=== PATIENT | male | born 1940 | race Caucasian/White ===

== ENCOUNTER 2023-04-17 08:29 | Day surgery (SDC) | payer MEDICARE, OTHER, SELFPAY ==
[2023-04-05 09:36] VITALS: BMI 28.7
[2023-04-17] VITALS (12 sets, daily range): BP systolic 124–185; BP diastolic 49–83; PULSE 67–90; RESP 11–16; TEMP 35.9–37.2; O2SAT 92–98; BMI 27.8
--- NOTE | 2023-04-17 06:40 | DI.RAD.S_ITS ---
PROCEDURE: XR KNEE RT 1TO2V INDICATIONS: TKA TECHNIQUE: 2 view(s) of the knee acquired. COMPARISON: None. FINDINGS: Bones: Patient is status post knee joint arthroplasty. Hardware components are in expected positions. Visualized bony structures are intact. Soft tissues: Overlying postoperative changes are noted. IMPRESSION: Expected post-operative appearance of a knee arthroplasty. Dictated by: Terra Avila M.D. on 04/17/2023 at 13:45 Approved by: Terra Avila M.D. on 04/17/2023 at 13:45
[2023-04-17] MEDS: VANCOMYCIN 1,000 MG/200 ML PIGGYBACK 200 MG IV (09:34)
[2023-04-17] MEDS: ACETAMINOPHEN 325 MG TABLET 975 MG PO (09:35)
[2023-04-17] MEDS: LACTATED RINGERS 1,000 ML 42 ML IV (09:35)
[2023-04-17] MEDS: CELECOXIB 200 MG CAPSULE PO (09:35)
--- NOTE | 2023-04-17 10:10 | PM.PREOP ---
Pre-operative Note Interval Note History & Physical reviewed/Exam performed by Physician: Yes Changes to H&P: No
--- NOTE | 2023-04-17 10:11 | PM.PREOP ---
Pre-operative Note Interval Note History & Physical reviewed/Exam performed by Physician: Yes Changes to H&P: No
--- NOTE | 2023-04-17 10:11 | PM.OP.1 ---
Operative Date/Time/Diagnoses Date of procedure: 04/17/23 Time of procedure: 10:45 Pre-op diagnosis: right knee OA Post-op diagnosis: same Procedure & Clinicians Procedure: Right total knee arthroplasty with robotic assisted navigation Same procedure as scheduled: Yes Indications: The patient has had progressively worsening right knee pain with radiographic changes consistent with arthritis. Non-operative management has failed and the patient has requested total knee replacement. The risks, benefits and alternatives to surgery were discussed with the patient prior to proceeding. Risks discussed included, but were not limited to, failure to relieve pain, stiffness, infection, nerve damage, deep venous thrombosis, pulmonary embolism, stroke, coma, heart attack, permanent paralysis and , as well as the potential need for eventual revision of the prosthetic. Surgeon: Nancy Garcia Calculus Professor: Justin Gibson Anesthesia Type: General Operative Notes Findings: Severe right knee OA, adequate bone, good stability Closure Type: primary Specimen(s): none sent Prosthetic devices, grafts, tissues, transplants, or devices: Garcia and nephew BCS 2 size 7 femur, size 5 tibia, 9 mm polyethylene, 35 x 9 mm patella Estimated Blood Loss (mL): 250 Blood products transfused: none Tourniquet time (min): 87 Procedure in detail: The patient was seen in the pre-operative area, where the patient identified the right knee as the operative site and this was marked with my initials. The patient received pre-operative antibiotics, and was taken to the operating room and placed on the operative table in the supine position. After satisfactory anesthesia, a feed and farm management adviser out was performed. The right leg was encircled with a tourniquet about the proximal thigh, and the leg was prepared from the toes to the tourniquet with ChloroPrep in the usual fashion and draped through sterile drapes. The leg was elevated and exsanguinated with Eschmark bandage and the tourniquet inflated to [250] mmHg pressure. A PA was used during the procedure and was essential for intraoperative retraction and safe implantation of the components. The knee was approached through an approximately 18 cm incision centered over the patella and carried into the knee through a medial parapatellar arthrotomy. Portion of the medial and lateral meniscus was resected. Soft tissue was carefully mobilized around the patella the patella was measured with a caliper. Bone was resected from the patella and the patellar height was reconstituted with up an appropriate sized patellar component. A cover was then placed on the patella. A small amount of additional medial and lateral meniscus was resected. Osteophytes were carefully resected. Two Cori pins were placed in the femur and tibia for robotic assisted navigation with the adjustable guide being pinned to the tibia for planned tibial resection. The femur and the tibia were carefully navigated. The PCL was released. Any overlying osteophytes were removed. Patient was then placed thru a range of motion and measurements were taken for stressed and non stressed range of motion of the knee with the plan for robotic assisted system resection of the distal femur and proximal tibia. A plan was taken and improved. A bur was used to resect the distal femoral cut and the femur was further prepared. It was punched and then a 5 in 1 cutting block was applied. The rotation was checked as well as it was checked to make sure there was no evidence of notching. There was good resection of the bone with residual bone spurs being removed with a rongeur. The tibia was carefully adjusted and aligned. Tibial resection appeared appropriate and it was carefully checked with navigation. The femoral component was placed and the notch was finished. A trial reduction was performed. The knee demonstrated full range of motion with good anabaptism of medial and lateral stability with its selected polyethylene insert. Navigation showed there was about 1 mm of laxity throughout the range of motion. There was excellent tracking of the patella and the components. Trial components were removed. The posterior capsule was injected with part of a mixture of 60 ml 0.25% Marcaine mixed with 266 mg Exparel for post operative pain control. The remainder of this mixture was injected into the capsule and subcutaneous tissues during cement curing. The tibia was prepared and punched. The rotation was assessed. After femoral and tibial resection, The patient was placed in extension residual medial and lateral meniscus as well as any residual bone was carefully resected. Hemostasis was achieved especially posteriorly. Additional local was injected into the posterior capsule. Range of motion was [0-130], with good stability throughout the range. The trials were then removed, and the tibia was finished. The bone was prepared with pulsatile lavage, and dried with a sponge. Cement was applied and the final prosthetics placed. Excess cement was removed during and after cement curing. A brief Betadine soak was performed. After confirming there was no extruded cement posteriorly, the final tibial insert was placed. The knee was copiously irrigated and the tourniquet deflated. Hemostasis was obtained with the Bovie cautery. The capsule was closed with interrupted Vicryl. The subcutaneous layer was closed with barbed sutures, and the skin with a running 3-0 V-Lock suture and Surgical glue. An Aquacel Ag dressing was applied and the patient was taken to recovery having tolerated the procedure well. Complications: none Post-operative Condition: stable Disposition: Acute Care Plan for aftercare: The patient will be maintained on a standard total knee replacement protocol with weight bearing as tolerated. The patient will receive aspirin and sequential compression devices for DVT prophylaxis. The patient will be discharged home when safe for the home environment.
--- NOTE | 2023-04-17 10:19 | SUR.OPER ---
Supine on padded OR bed. Pillow under head, arms secured on padded armboards <90 degree abduction. Safety belt across torso. Non-operative leg secured with tape over blanket over lower leg. Operative leg secured in Glenn positioner. Foam padded brace at thigh of operative leg.
[2023-04-17] MEDS: CLINDAMYCIN 900 MG/50 ML PIGGYBACK 50 MG IV ×2 (10:30→18:11)
[2023-04-17] MEDS: BUPIVACAINE LIPOSOME 266 MG/20 ML VIAL INJ (10:59)
[2023-04-17] MEDS: BUPIVACAINE 0.25% (PF) 60 ML, EPINEPHrine 0.3 MG INJ (11:00)
[2023-04-17] MEDS: TRANEXAMIC ACID 1,000 MG VIAL 1000 MG INJ ×2 (11:07→12:19)
[2023-04-17] MEDS: LACTATED RINGERS 1,000 ML 120 ML IV (12:18)
[2023-04-17] MEDS: ONDANSETRON 4 MG/2 ML INJ IV (12:57)
[2023-04-17] MEDS: OXYCODONE IR 5 MG TABLET PO (12:57)
[2023-04-17] MEDS: ACETAMINOPHEN 325 MG TABLET 650 MG PO ×2 (13:26→20:29)
[2023-04-17] MEDS: LACTATED RINGERS 1,000 ML 100 ML IV (13:27)
[2023-04-17] MEDS: IBUPROFEN 400 MG TABLET PO ×3 (13:27→20:28)
--- NOTE | 2023-04-17 16:20 | PT.IIE ---
Current Diagnoses Unilateral primary osteoarthritis, right knee (04/17/23) Surgery Performed Operation Date: 04/17/23 10:45 Actual Procedures p Total Knee Arthroplasty - Robot(Right) - Nancy Garcia MD Surgical History (Last Updated 04/05/23 @ 10:25 by Jessie Vaughan, RN) History of back surgery History of lumbar fusion Hx of appendectomy Hx of bilateral cataract extraction Hx of right mastectomy (2004) Medical History (Last Updated 04/05/23 @ 10:20 by Jessie Vaughan RN) Cancer of right male breast (2004) Diabetes Diarrhea History of COVID-19 (12/2022) HLD (hyperlipidemia) HTN (hypertension) Physical Therapy Inpatient Evaluation/Re-Eval M1 PT/OT-IP Prior Functional Status Start: 04/17/23 17:25 Freq: NEEDED Status: Active Protocol: Document 04/17/23 16:20 AB (Rec: 04/17/23 17:49 AB [id number]) Medical Review Prior Functional Status Medical History Reviewed Yes Communication able to make needs known Mobility and Gait pt was modified independent with all mobilities using a walking stick for ambulation Social History Household Members spouse Living Arrangements House Number of Floors (Floors) Two Floors Number of Stairs To Enter/Railing? 3 steps to enter with L rail 9 steps + landing + 8 steps with wide rails to get to bedroom level where pt will be staying ( pt stated that if he is unable to do stairs, they will ask EMS/fire department to assist them to get into the bedroom) Home Environment Standard Height Toilet,Walk in Shower Home Equipment Front Wheel Walker,Raised Toilet Seat w/Armrests,Shower Seat with Backrest,Hand Held Shower Additional Social History Comment pt has a walking stick M2 PT-IP Current Condition Start: 04/17/23 17:25 Freq: NEEDED Status: Active Protocol: Document 04/17/23 16:20 AB (Rec: 04/17/23 17:49 AB [id number]) Physical Therapy Current Condition Current Condition Evaluation Date 04/17/23 Treatment Diagnosis s/p R TKA; difficulty in walking Onset Date 05/07/23 M3 PT-IP Subjective Start: 04/17/23 17:25 Freq: NEEDED Status: Active Protocol: Document 04/17/23 16:20 AB (Rec: 04/17/23 17:49 AB [id number]) Subjective Physical Therapy Visit Type Type Initial Evaluation Visit Start Time 16:20 Visit Stop Time 17:15 Number of METER MECHANIC Visits 0 Physical Therapy Visit Comments Patient Comments pt agreed to do PT Therapy Pain Assessment Pain When Pain Assessed At Rest Pain Present Pain Present Pain Reported Location knee Scale Used pain scale not stated Pain Behaviors Guarding Pain Management Techniques Apply Cold,Distraction, Elevation,Modification of Treatment,Re-positioning, Timing of Activity with Medications M4 PT-IP Mobility and Gait Start: 04/17/23 17:25 Freq: NEEDED Status: Active Protocol: Document 04/17/23 16:20 AB (Rec: 04/17/23 17:49 AB [id number]) PT-Bed Mobility Assessment Supine to Sit Supine to Sit Standby Assistance Sit to Supine Sit to Supine Standby Assistance PT-Transfer Assessment Sit to and From Stand Sit to and from Stand Standby Assistance,1 Person Assistance,Use of Upper Extremities Equipment Transfer Assistive Device Gait Belt,Front Wheeled Walker Orthotic/Prosthetic Devices or Brace: No Transfers Transfer Destination Bed Transfer Technique ambulated Transfer Ability Level of Assist 1 Person Assistance,Use of Upper Extremities Comments Mobility Comments pt sitting on the chair. agreed to do PT. nurse in room and stated that pt does not want to have safety belt on and does not want to use a FWW . informed pt regarding safety and was adamant about not wanting to use safety belt and will not do PT if so. educated pt regarding safety and steadiness and PT will agree for pt not to use safety belt but if pt is unsteady and not safe, PT will have to put safety belt on. Pt agreed . pt agreed to use FWW. pt directs his own care and stated that he does not need assistance and has been doing things his own was for more than 30 years. post-op folder provided to pt and reviewed contents. reviewed HEP. pt completed sit to stand from the chair x 3 attempts before being able to get up. educated pt on pushing and straigthening BLE to get up from the chair and pt completed. Pt refused assistance SBA. pt initially does not want PT to stand close to him but pt educated and compromised for safety needs. pt tends to be argumentative. pt ambulated to EOB using FWW SBA ~ 15 ft. pt sat on EOB but stated that he has a water bed and usually climbs and put his L leg up in the bed first in sort of a prone position before rolling into the bed. pt insisted on his technique and PT assessed pt's safety with said bed mobility and pt completed SBA but with cues with R quads activation to be able to lift LLE up into the bed. educated pt on safety and making sure that R knee is steady and not give out when doing bed mobility and pt understood. pt completed supine to sit SBA. ambulated back to the chair SBA using FWW. presents with heavy UE use on FWW and antalgic gait with decrease ability to sustain quads contraction on RLE to lift LLE forward. educated pt regarding quads contraction technique on RLE and importance when doing stairs. pt understood. talked with pt regarding stair climbing training tomorrow and for safety reasons, will need to use safety belt and pt agreed. Caregiver training set up for tomorrow at 9 am and spouse will be available. pt wanting to put his shorts on and wants his spouse to assist him with that and not PT. Left pt with spouse. Gait Assessment Gait Gait Assistance Required: Standby Assistance,1 Person Assist Distance (Feet) 15 Able to Maintain Weight Bearing Status Yes During Gait Assistive Devices Assistive Device Gait Belt,Front Wheeled Walker Orthotic/Prosthetic Devices or Brace: No Gait Deviations General Gait Pattern Antalgic,Decreased Stride Length,Decreased Feet Clearance,Flexed Trunk,Step-to Gait Factors Limiting Gait Function Factors Limiting Gait Function Decreased Activity Tolerance, Decreased Strength,Difficulty Following Directions,Limited Range of Motion,Pain,Poor Balance,Poor Safety Awareness PT-Balance Assessment Sitting Balance and Reactions Static Sitting Balance Ability Normal Dynamic Sitting Balance Ability Good Standing Balance and Reactions Static Standing Balance Ability Fair Dynamic Standing Balance Ability Fair Device Used FWW M5 PT-IP Objective Assessments Start: 04/17/23 17:25 Freq: NEEDED Status: Active Protocol: Document 04/17/23 16:20 AB (Rec: 04/17/23 17:49 AB [id number]) Orientation Orientation/Cognition Level of Alertness Alert Orientation Name,Place,Situation Language Function Ability No Deficits Noted Safety Awareness Decreased Safety Awareness Memory Description Short Term Impaired Gross Range of Motion Lower Extremity ROM Assessment Right Impaired Impairments R knee flexion: ~ 90 deg R knee extension: ~ 35 deg less to 0 Strength Lower Extremity Strength Assessment Right Impaired Hip 3+/5 Knee 4-/5 Sensation Assessment Sensation Gross Sensation WNL Muscle Tone Muscle Tone WNL Yes M6 PT-IP Treatment Start: 04/17/23 17:25 Freq: NEEDED Status: Active Protocol: Document 04/17/23 16:20 AB (Rec: 04/17/23 17:49 AB [id number]) Physical Therapy Treatment Education Education Provided Precautions,Weight Bearing Status,Post-Op Packet,Safety M7 PT-IP Assessment and Plan Start: 04/17/23 17:25 Freq: NEEDED Status: Active Protocol: Document 04/17/23 16:20 AB (Rec: 04/17/23 17:49 AB [id number]) PT Summary Assessment and Plan Potential Rehabilitation Potential Fair Status of Condition at Evaluation Evolving Summary Impairments Pain,ROM,Strength,Balance, Coordination,Sensation,Tone, Cognition,Bed Mobility, Transfers,Gait,Activity Tolerance Assessment Summary pt is an 82 y/o M s/p R TKA POD 0. pt is WBAT on RLE. pt requiring SBA with mobility using FWW but presents with unsteady gait with heavy UE use on FWW. pt directs his own care and tends to have demands for his care that might compromise safety. education provided and pt is aware. caregiver training set up for tomorrow at 9 am. will continue to assess. Goals Bed Mobility Goal Independent Transfer Goal Independent,Front Wheeled Walker Gait Goal Independent,Front Wheel Walker Gait Distance 250 Other Goals up/down 3 steps L rail/walking stick CGA up/down 17 steps 1 rail CGA Days to Meet Goals 5 Frequency of Treatment Frequency Of Treatment Twice a Day Treatment Plan Physical Therapy Treatment Plan Bed Mobility Training,Transfer Training,Gait Training, Therapeutic Exercise,Balance Retraining,Post Op Education, Discharge Planning,Hot or Cold Pack,Neuromuscular Re-ed, Coordination Retraining,Manual Therapy Weight Bearing Status Weight Bearing Status Weight Bear as Tolerated Allowed Weight Bearing Amount (enter % RLE WBAT or #) (%) Recommendations To Nursing Amount of Assist Needed 1 Person Assist Discharge Recommendations PT Discharge Recommendations Home with 02/10 Assist Available,Home Health Transportation Needs at Discharge Private Vehicle
[2023-04-17] MEDS: OXYCODONE IR 10 MG TABLET PO (16:28)
[2023-04-17] MEDS: FINASTERIDE 5 MG TABLET PO (16:28)
--- NOTE | 2023-04-17 19:34 | PC.NURSE ---
patient very angry with nursing staff for req. to be present when trying to sit down at the toilet. Patient was verbally aggressive and demanded staff get out of bathroom and let him have his privacy. Explained to patient and (at bedside) the staff just needs to be present while patient needs to ambulate to and from bathroom and to make sure he safely is stilling on the toilet. Mult. attempts have been made to explain to patient that we dont need to stay inside bathroom while he is using it, that staff can stand close by with door closed to give him privacy. Patient cont. to get up out of chair without calling. Explained to patient and his safety is important to us. Patient is req. to have his fluids removed as 'its going to be difficult to get around with this thing. Patient states staff members are who is going to make him fall because we are standing to close and hovering over him while he is standing and ambulating.
--- NOTE | 2023-04-17 19:55 | PC.NURSE ---
Patient seen by PHernan today and able to ambulate to bathroom with walker and SB assistance. Patient refuses use of gait belt. Patient repeatedly requesting that he is not to be helped unless he asks for it. Patient reports even verbal queing makes him feel anxious, and requests that this nurse not speak to him while he walks to the bathroom. Safety and fall protocol reviewed with patient. Patient states understanding but still declines to use gait belt, and does not want anyone to watch him while he sits down onto the toilet. Patient reports that his already took me into the bathroom twice. Bed/chair alarm in use, call light within reach. Aquacel dressing with thaddeus wrap maintained CDI. Patient tolerated dinner. at bedside.
[2023-04-17] MEDS: ZOLPIDEM 5 MG TABLET PO (20:28)
[2023-04-17] MEDS: POTASSIUM CHLORIDE 10 MEQ TAB PO (20:28)
[2023-04-17] MEDS: ASPIRIN EC 81 MG TABLET PO (20:28)
[2023-04-17] MEDS: METFORMIN HCL 500 MG TABLET 250 MG PO (20:29)
[2023-04-17] MEDS: TAMSULOSIN 0.4 MG CAPSULE 0.8 MG PO (21:30)
--- NOTE | 2023-04-17 21:31 | PC.NURSE ---
2054: Patient requesting IV fluids to be stopped, making me have to urinate too much pt also mentions he did not take at home flomax today. Patient frequently urinating, stating he feels he is 'not emptying bladder'. This RN called Dr. Monson, order to stop IV fluids, one now dose of 0.8mg flomax, and to bladder scan post void. This RN spoke with patient about bladder scan and potential for straight catheter, patient refused the straight catheter (dr. monson aware).
[2023-04-18] VITALS: BP 166/67; PULSE 92; RESP 16; TEMP 36.3; O2SAT 98
[2023-04-18] MEDS: IBUPROFEN 400 MG TABLET PO ×3 (01:17→09:32)
[2023-04-18] MEDS: ACETAMINOPHEN 325 MG TABLET 650 MG PO ×2 (01:17→08:28)
[2023-04-18] MEDS: CLINDAMYCIN 900 MG/50 ML PIGGYBACK 50 MG IV (01:17)
[2023-04-18] MEDS: OXYCODONE IR 5 MG TABLET PO ×3 (02:51→08:28)
[2023-04-18 06:34] LABS: Hematocrit 39.1 % (41-53); Hemoglobin 13.1 g/dL (13.5-17.5)
[2023-04-18] MEDS: glipiZIDE 5 MG TABLET 10 MG PO (08:27)
[2023-04-18] MEDS: allopurinoL 100 MG TABLET 300 MG PO (08:27)
[2023-04-18] MEDS: atenoloL 50 MG TABLET PO (08:27)
[2023-04-18] MEDS: TAMSULOSIN 0.4 MG CAPSULE 0.8 MG PO (08:27)
[2023-04-18] MEDS: CHLORTHALIDONE 25 MG TABLET PO (08:27)
[2023-04-18] MEDS: lisinopriL 20 MG TABLET PO (08:28)
[2023-04-18] MEDS: ASPIRIN EC 81 MG TABLET PO (08:28)
--- NOTE | 2023-04-18 08:38 | OT.IP.EVAL ---
Current Diagnoses Unilateral primary osteoarthritis, right knee (04/17/23) Surgery Performed Operation Date: 04/17/23 10:45 Actual Procedures p Total Knee Arthroplasty - Robot(Right) - Nancy Garcia MD Past Medical History (Last Updated 04/05/23 @ 10:20 by Jessie Vaughan, RN) Cancer of right male breast (2004) Diabetes Diarrhea History of COVID-19 (12/2022) HLD (hyperlipidemia) HTN (hypertension) Surgical History (Last Updated 04/05/23 @ 10:25 by Jessie Vaughan RN) History of back surgery History of lumbar fusion Hx of appendectomy Hx of bilateral cataract extraction Hx of right mastectomy (2004) Occupational Therapy Inpatient Evaluation/Re-Eval M1 PT/OT-IP Prior Functional Status Start: 04/18/23 08:39 Freq: NEEDED Status: Active Protocol: Document 04/18/23 08:39 [facility] (Rec: 04/18/23 08:48 [facility] [id number]) Medical Review Prior Functional Status Medical History Reviewed Yes Communication able to make needs known Mobility and Gait pt was modified independent with all mobilities using a walking stick for ambulation Activities of Daily Living and IADL's Pt states able to do but had pain and needing increased time . Social History Household Members spouse Living Arrangements House Number of Floors (Floors) Two Floors Number of Stairs To Enter/Railing? 3 steps to enter with L rail 9 steps + landing + 8 steps with wide rails to get to bedroom level where pt will be staying ( pt stated that if he is unable to do stairs, they will ask EMS/fire department to assist them to get into the bedroom) Home Environment Standard Height Toilet,Walk in Shower Home Equipment Front Wheel Walker,Raised Toilet Seat w/Armrests,Shower Seat with Backrest,Hand Held Shower,Insect Control Aide,Sock Aid Additional Social History Comment pt has a walking stick M2 OT-IP Current Condition Start: 04/18/23 08:39 Freq: Status: Active Protocol: Document 04/18/23 08:39 [facility] (Rec: 04/18/23 08:48 [facility] [id number]) Occupational Therapy Current Condition Current Condition Evaluation Date 04/18/23 Treatment Diagnosis S/P R TKA Diagnosis Onset Date 04/17/23 M3 OT- IP Subjective and Pain Start: 04/18/23 08:39 Freq: Status: Active Protocol: Document 04/18/23 08:39 [facility] (Rec: 04/18/23 08:48 [facility] [id number]) OT- Subjective Occupational Therapy Visit Type Type Initial Evaluation Visit Start Time 08:20 Visit Stop Time 08:38 Occupational Therapy Visit Comments Patient Comments Pt wanting to use the bathroom and get dressed. Pt's in the room. Patient/Caregiver Goals TO go home. OT Pain Assessment Pain When Pain Assessed During Mobility Pain Present Pain Present Pain Reported Location Right Lower Leg Intensity 4 Scale Used Numeric (0 - 10) M4 OT- IP ADL's Start: 04/18/23 08:39 Freq: Status: Active Protocol: Document 04/18/23 08:39 [facility] (Rec: 04/18/23 08:48 [facility] [id number]) OT OTB-Yrgz-Akcrwkh General Evaluation Self-Feeding Ability Independent OT ADL-Grooming Comments OT Grooming Comments Not performed. OT ADL-Oral Care Comments Oral Care Comments Not performed. OT ADL-Dressing General Eval Lower Body Dressing Ability Minimal Assistance Comments OT Dressing Comments Educated to dress the right LE first and take out last. Able to issue a long handled shoe horn to pt. OT ADL-Toileting Comments OT Toileting Comments Pt has a bidet at home. Educated to be mindful of his right knee positioning during ADL needs. Suggested pt use a urinal at night. OT ADL-Bathing Comments OT Bathing Comments Pt not wanting to do. Able to issue pt a long handled brush to use. Educated pt of covering the bandage during showers. M5 OT- IP IADL's Start: 04/18/23 08:39 Freq: Status: Active Protocol: Document 04/18/23 08:39 [facility] (Rec: 04/18/23 08:48 [facility] [id number]) OT-Instrumental Activities of Daily Living Deficits IADL Deficits Identified Deficits Home Safety Awareness Awareness of Need for Assistance at Home Good Awareness Ability to Problem Solve Emergency Able to Problem Solve Situations Medication Management Medication Management Caregiver Administers Money Management Money Management Caregiver Provides Assistance Meal Preparation Meal Preparation Caregiver Provides Assist Casing Man Casing Man Caregiver Provides Assist M6 OT- IP Functional Cognition Start: 04/18/23 08:39 Freq: Status: Active Protocol: Document 04/18/23 08:39 [facility] (Rec: 04/18/23 08:48 [facility] [id number]) Cognitive Factors Limiting Selfcare Function Cognitive Ability Level of Alertness Alert Patient Orientation Name,Age,Birthday,Month,Date, Year,Day of Week,Place, Situation Attention Span Ability Capable of Focused Attention, Capable of Sustained Attention Ability to Follow Commands Able to Follow Multi-Step Commands Safety Awareness Underestimates Need for Assistance Cognitive Comments Cognitive Assessment Comments Pt able to follow commands but insistent on his way for his care. Pt's has good understanding and able to assist pt safely for all ADL and mobility needs. M7 OT- IP Mobility and Balance Start: 04/18/23 08:39 Freq: Status: Active Protocol: Document 04/18/23 08:39 [facility] (Rec: 04/18/23 08:48 [facility] [id number]) OT-Transfer Assessment Sit to and From Stand Sit to and from Stand Standby Assistance Transfers Transfer Ability Standby Assistance Technique Transfer Destination Bed,Toilet OT- Balance Assessment Sitting Balance and Reactions Static Sitting Balance Ability Normal Dynamic Sitting Balance Ability Good Standing Balance and Reactions Static Standing Balance Ability Good Dynamic Standing Balance Ability Good- M9 OT- IP Assessment and Plan Start: 04/18/23 08:39 Freq: Status: Active Protocol: Document 04/18/23 08:39 [facility] (Rec: 04/18/23 08:48 [facility] [id number]) OT Summary Assessment and Plan Potential Rehabilitation Potential Excellent Analytic Complexity at Evaluation Low Summary OT Impairments Pain,Strength,Balance, Functional Mobility,Dressing, Bathing,Shower Transfers Progress Towards Goals Progressing Toward Goals Assessment Summary Pt low complexity and main barriers are pain, steps, and a bit insistent on his care. Pt's present for caregiver training and able to provide good safety and understanding of how to assist pt for ADL and mobility needs . Goals Grooming Goal Independent Dressing Goal Independent Toileting Goal Independent Bathing Goal Standby Assistance Toilet Transfer Goal Independent Shower Transfer Goal Independent Days to Meet Goals 5 Frequency of Treatment Frequency Of Treatment Once a Day Treatment Plan OT Treatment Plan ADL Training,Functional Mobility,Patient/Family Education,Discharge Planning Discharge Recommendations OT Discharge Recommendations Home with Assistance, Outpatient PT Transportation Needs at Discharge Private Vehicle
--- NOTE | 2023-04-18 09:05 | PT.IPTN ---
Current Diagnoses Unilateral primary osteoarthritis, right knee (04/17/23) Surgery Performed Operation Date: 04/17/23 10:45 Actual Procedures p Total Knee Arthroplasty - Robot(Right) - Nancy Garcia MD Physical Therapy Treatment Note M2 PT-IP Current Condition Start: 04/17/23 17:25 Freq: NEEDED Status: Active Protocol: Document 04/17/23 16:20 AB (Rec: 04/17/23 17:49 AB [id number]) Physical Therapy Current Condition Current Condition Evaluation Date 04/17/23 Treatment Diagnosis s/p R TKA; difficulty in walking Onset Date 05/07/23 M3 PT-IP Subjective Start: 04/17/23 17:25 Freq: NEEDED Status: Active Protocol: Document 04/18/23 09:05 AB (Rec: 04/18/23 12:18 AB [id number]) Subjective Physical Therapy Visit Type Type Treatment Note Visit Start Time 09:05 Visit Stop Time 09:30 Number of SWISS TYPE SCREW MACHINE OPERATOR Visits 0 Physical Therapy Visit Comments Patient Comments agreeable to do PT Therapy Pain Assessment Pain When Pain Assessed During Mobility Pain Present Pain Present Pain Reported Location Right Knee Intensity 6 Pain Management Techniques Apply Cold,Distraction, Elevation,Modification of Treatment,Re-positioning, Timing of Activity with Medications Right Lower Leg Pain Behaviors Guarding M4 PT-IP Mobility and Gait Start: 04/17/23 17:25 Freq: NEEDED Status: Active Protocol: Document 04/18/23 09:05 AB (Rec: 04/18/23 12:18 AB [id number]) PT-Transfer Assessment Sit to and From Stand Sit to and from Stand Standby Assistance Equipment Transfer Assistive Device Front Wheeled Walker Orthotic/Prosthetic Devices or Brace: No Comments Mobility Comments pt is sitting on the chair and spouse in room. educated pt regarding stair climbing techniques using rail + SPC. pt continues to refuse use of safety belt and for PT to stand close to assist despite education on safety. pt directs his own care. pt completed sit to stand SBA and ambulated towards the stairs using FWW SBA. completed up/down steps using SPC + L rail ascending SBA. completed x 2 sets. pt refuse all other recommendations for techniques and can get easily agitated. pt ambulated back to his room using FWW SBA and sat on the chair. positioned on the chair. call light and table placed within reach. ice pack provided. Gait Assessment Gait Gait Assistance Required: Standby Assistance Distance (Feet) 125 Able to Maintain Weight Bearing Status Yes During Gait Assistive Devices Assistive Device Front Wheeled Walker Orthotic/Prosthetic Devices or Brace: No Gait Deviations General Gait Pattern Antalgic,Decreased Stride Length,Decreased Feet Clearance Factors Limiting Gait Function Factors Limiting Gait Function Decreased Activity Tolerance, Decreased Strength,Limited Range of Motion,Pain,Poor Balance,Poor Safety Awareness Stair Climbing Assessment Evaluation Level of Assist On Stairs Standby Assistance Devices Stair Climbing Assistive Devices Straight Cane,Left Railing Technique/Endurance Stair Climbing Direction Ascend and Descend Stair Climbing Technique Step to Step Number of Steps Climbed 3 Stair Climbing Set # Repetitions (reps) 2 M5 PT-IP Objective Assessments Start: 04/17/23 17:25 Freq: NEEDED Status: Active Protocol: Document 04/17/23 16:20 AB (Rec: 04/17/23 17:49 AB [id number]) Orientation Orientation/Cognition Level of Alertness Alert Orientation Name,Place,Situation Language Function Ability No Deficits Noted Safety Awareness Decreased Safety Awareness Memory Description Short Term Impaired Gross Range of Motion Lower Extremity ROM Assessment Right Impaired Impairments R knee flexion: ~ 90 deg R knee extension: ~ 35 deg less to 0 Strength Lower Extremity Strength Assessment Right Impaired Hip 3+/5 Knee 4-/5 Sensation Assessment Sensation Gross Sensation WNL Muscle Tone Muscle Tone WNL Yes M6 PT-IP Treatment Start: 04/17/23 17:25 Freq: NEEDED Status: Active Protocol: Document 04/18/23 09:05 AB (Rec: 04/18/23 12:18 AB [id number]) Physical Therapy Treatment Education Education Provided Safety M7 PT-IP Assessment and Plan Start: 04/17/23 17:25 Freq: NEEDED Status: Active Protocol: Document 04/18/23 09:05 AB (Rec: 04/18/23 12:18 AB [id number]) PT Summary Assessment and Plan Potential Rehabilitation Potential Fair Summary Impairments Pain,ROM,Strength,Balance, Coordination,Sensation,Tone, Cognition,Bed Mobility, Transfers,Gait,Activity Tolerance Assessment Summary pt requiring SBA with mobility using FWW. pt plans to go home with spouse to assist as needed. pt directs his own care and not receptive to recommendations. pt may go home when medically stable. Goals Bed Mobility Goal Independent Transfer Goal Independent,Front Wheeled Walker Gait Goal Independent,Front Wheel Walker Gait Distance 250 Other Goals up/down 3 steps L rail/walking stick CGA up/down 17 steps 1 rail CGA Days to Meet Goals 5 Frequency of Treatment Frequency Of Treatment Twice a Day Treatment Plan Physical Therapy Treatment Plan Bed Mobility Training,Transfer Training,Gait Training, Therapeutic Exercise,Balance Retraining,Post Op Education, Discharge Planning,Hot or Cold Pack,Neuromuscular Re-ed, Coordination Retraining,Manual Therapy Weight Bearing Status Weight Bearing Status Weight Bear as Tolerated Allowed Weight Bearing Amount (enter % RLE WBAT or #) (%) Recommendations To Nursing Amount of Assist Needed 1 Person Assist Discharge Recommendations PT Discharge Recommendations Home with 02/10 Assist Available,Home Health Transportation Needs at Discharge Private Vehicle
--- NOTE | 2023-04-18 09:59 | P.DS_ITS ---
History of Present Illness History of Present Illness Chief complaint: Right TKA *OPB* 04/17 Narrative: Operative Date/Time/Diagnoses Date of procedure: 04/17/23 Time of procedure: 10:45 Pre-op diagnosis: right knee OA Post-op diagnosis: same Procedure & Clinicians Procedure: Right total knee arthroplasty with robotic assisted navigation Same procedure as scheduled: Yes Indications: The patient has had progressively worsening right knee pain with radiographic changes consistent with arthritis. Non-operative management has failed and the patient has requested total knee replacement. The risks, benefits and alternatives to surgery were discussed with the patient prior to proceeding. Risks discussed included, but were not limited to, failure to relieve pain, stiffness, infection, nerve damage, deep venous thrombosis, pulmonary embolism, stroke, coma, heart attack, permanent paralysis and , as well as the potential need for eventual revision of the prosthetic. Surgeon: Nancy Garcia Neighborhood Conservation Officer: Justin Gibson Anesthesia Type: General Justin is a pleasent 82 year old male who is POD#1 s/p Right TKA by Dr. Garcia. Overall patient reports he is doing well and looking forward to d/c to home today. Pain is mild-moderate, very minimal pain at rest but increases with movement and weight bearing. Most of the pain is located at the superior/anterior aspect of the knee. Able to sleep through the night without pain. Has been able to work with PT on walking and steps with good success. Able to use the restroom on his own with assistance of a walker. Has spoke with CM and has home health PT set up, he plans to do PT at home for the first few weeks before transitioning to outpatient PT d/t the 17 steps it takes to get in and out of his home. Has walker, cane, grab bars and commode at home for post-op use. Patient lives with who is also willing and able to help patient during his immediate post-op recovery period. Has ice machine at home he plans to use for additional pain control. Denies chest pain, SOB, nausea, vomiting, fever. Discharge Providers Provider Discharge Date: 04/18/23 Primary care physician: Aurelio Tucker MD Consults: 04/17/23 06:40 Consult to Anesthesiology Routine Comment: Consulting Provider: Anesthesiologist Reason for consultation: Regional block for post operative pain control 04/17/23 13:02 Consult to Discharge Planning Routine Comment: Consult to Occupational Therapy Evaluate & Treat Comment: Physician Instructions: Evaluate and treat Consult to Physical Therapy Evaluate & Treat Comment: Physician Instructions: postop TKA protocol Discharge provider: Ashely Flores PA-C Summary Hospital Course Discharge Diagnosis: right knee OA s/p Right total knee arthroplasty with robotic assisted navigation Hospital Course: Uncomplicated hospital course Exam Vital Signs (past 8 hours): Oxygen Delivery Method Room Air Oxygen Flow Rate 0 Const General: cooperative, healthy appearing and comfortable Resp Effort & Inspection: normal respiratory effort and able to speak in complete sentences Cardio Rate: regular rate Skin General: no rashes or lesions noted Other: Clean and dry Aquacel dressing intact over the right anterior knee with scant dried blood at the proximal incision site. Neuro General: patient alert, patient awake and patient oriented x3 Extrem Other: ROM of right knee 0-95. Sensation intact through the entire RLE. 5/5 stregth with DF, PF, EHL. Calf soft and non-tender. Objective Labs 04/18/23 06:15 Labs: Laboratory Results - last 24 hr 04/18/23 06:15 Hgb 13.1 L Hct 39.1 L PFSH Medical History (Updated 04/05/23 @ 10:20 by Jessie Vaughan RN) Cancer of right male breast (2004) Diabetes Diarrhea HLD (hyperlipidemia) HTN (hypertension) History of COVID-19 (12/2022) Surgical History (Updated 04/05/23 @ 10:25 by Jessie Vaughan RN) Hx of right mastectomy (2004) History of back surgery History of lumbar fusion Hx of appendectomy Hx of bilateral cataract extraction Social History household members: spouse Smoking Status: Never smoker alcohol intake: current Discharge Assessment & Plan Assessment and Plan Assessment: Stable s/p Right total knee arthroplasty with robotic assisted navigation Plan of Treatment: 1) standard total knee replacement protocol with weight bearing as tolerated 2) Continue multimodal pain management with oral medication and ice. ASA BID for DVT Prophylaxis for 6 weeks. 3) Continue to work on mobilization at home and with PT 4) Keep dressing intact, clean and dry. 5) Follow up at [facility] in 2 weeks All patient questions answered, call our office if any other questions arise. Discharge Plan Discharge Plan Patient Disposition: Home Provider Discharge Comment: Follow up at [facility] in 2 weeks for a post-op appointment Discharge orders & Medications Discharge Orders: Discharge (Order); Ordered 04/18/23 Ordered By: Ashely Flores Prescriptions: New acetaminophen 325 mg Tablet 650 mg PO Q6H Qty: 90 0RF aspirin 81 mg Tablet,Delayed Release (Dr/Ec) 81 mg PO BID Qty: 90 0RF docusate sodium 100 mg Capsule 100 mg PO BID PRN (Reason: constipation) Qty: 30 0RF ibuprofen 400 mg Tablet 400 mg PO Q4H Qty: 60 0RF ondansetron 4 mg Tablet,Disintegrating 4 mg PO Q4HR PRN (Reason: Nausea And Vomiting) Qty: 14 0RF oxycodone 5 mg Tablet 5 mg PO Q4-6H PRN (Reason: Pain, Moderate (4-6)) Qty: 30 0RF Continued metformin 500 mg Tablet 250 mg PO BEDTIME ibuprofen 200 mg Capsule 200 mg PO DAILY PRN (Reason: Pain) glipizide 10 mg Tablet 10 mg PO DAILY atenolol-chlorthalidone 50-25 mg Tablet 0.5 tab PO DAILY potassium chloride 10 mEq Tablet Extended Release 10 meq PO BEDTIME acetaminophen 650 mg Tablet Extended Release 1,300 mg PO DAILY PRN (Reason: Pain) oxycodone-acetaminophen 5-325 mg Tablet 1 tab PO DAILY PRN (Reason: Pain) tamsulosin 0.4 mg Capsule 0.8 mg PO DAILY benazepril 20 mg Tablet 20 mg PO DAILY allopurinol 300 mg Tablet 300 mg PO DAILY zolpidem 5 mg Tablet 5 mg PO BEDTIME finasteride 5 mg Tablet 5 mg PO QPM Follow up/Referrals: Nancy Garcia MD [Physician] - 05/02/23 10:30 am (Appt:05/02 @ 10:[address] Garcia @ [facility] ) Aurelio Tucker MD [Primary Care Provider] - Diet/Activity/Treatments Diet: Diet as Tolerated Activity: Weight bearing as tolerated. Continue to work on stretching and strengthening. Cold/Heat Therapy: Ice to the knee for additional pain control. Skin/Wound/Dressing Care Report to your healthcare provider any signs of infection, such as:: chills, fever, night sweats, unusual drainage and unusual redness Dressing: Keep dressing clean and dry. Keep dressing intact until 2 week post-op appointment. NO soaking the incision in pools or tubs. No topical ointments or creams to the incision site. If dressing becomes saturated or dirty okay to remove and replace with clean dry gauze and call our office. Visit Report/Discharge Packet Instructions: DI for Knee Replacement, How to Prevent Falls, DI for Prescription Opioid Use Stand Alone Forms: Patient Portal/API Discharge Data Primary Care Provider: Aurelio Tucker Attending Provider: Nancy Garcia
--- NOTE | 2023-04-18 10:15 | CM.DANOTE ---
Initial DCP Assessment Note Reviewed EMR and team rounds for pt's medical status and anticipated d/c needs. Met with pt/spouse at bedside to introduce self and role. Pt was found to be dressed, preparing for d/c home today, was present and plans to transport pt home. They identified the need for a Medical Priority Boarding Pass for d/c. Completed the form and gave to pt's while they were still in the room. No further DCP needs are identified at this time. Payor: Medicare Attending: Dr. Nancy Garcia Pt is a 82 year-old M post-op day 1 in [facility]. He has a hx of bilateral knee pain, however the right knee has been worsening more than the left. He uses a walking stick at baseline for mobility. Per Ortho, pt's pain has worsened to the point where walking has become difficult, and ADL's are limited due to pain. Conservative measures of injections, exercise, and anti-inflammatory medications have not provided lasting beneft. Pt completed a total R-knee arthoroplasty yesterday, and plan is to return home today, OP PT is recommended, f/u with post-op Ortho in 2-weeks. Pt has all DME required for home post-surgical recovery. Discharge Planning/Care Management Advanced directive, confirm from FAMILY Start: 04/17/23 13:41 Freq: Q24H Status: Active Protocol: Document 04/17/23 13:41 AKP (Rec: 04/17/23 13:42 AKP [id number]) Advance Directive, confirm on record Time 13:41 Person contacted states can not bring in Copy received No CM Discharge Assessment Start: 04/18/23 10:12 Freq: Status: Active Protocol: Document 04/18/23 10:13 DPL (Rec: 04/18/23 10:15 DPL [id number]) Discharge Planning Assessment Assigned Line Runner GALLITO Marley Advance Directives? Yes Advance Directives on File No History Provided By Patient,Significant Other, Medical Record Has Patient been admitted in last 30 No days? Prior Living Arrangements House Household Members spouse Type of transporation used prior to Drives own vehicle admit Independent with ADL's Yes: Modified Independent w/ assistance Is patient alert and oriented? Yes Needs Assistance With Home Chores / Shopping Caregiver for Another No Community Services used prior to Physical Therapy admission: DME Already Rented / Owned Bath Bench,Elevated Toilet Seat,FWW / Walker Comment walking sticks Patient/Family Preference OP PT Therapy Discharge Plan Home Community Services Physical Therapy Transportation Arrangement Spouse Referrals Initiated None needed Whiteboard Updated in Patient Room with Yes name and ext. # of Line Runner Comment Completed a Medical Priority Boarding Pass for pt to return home, provided to pt in the room. Review Status In Process Please Provide Date Initial DC 04/18/23 Assessment Was Performed Pre-Anesthesia Assessment Start: 04/05/23 09:36 Freq: Status: Active Protocol: Document 04/05/23 09:36 CAB (Rec: 04/05/23 10:37 CAB [id number]) Pre-Anesthesia Assessment Preferred Name Al Patient Information Reviewed Via Phone Assessment Assessment Completed With Patient Diagnostic Results BMP/CMP,CBC Comment Outside labs and rhythm strip scanned Primary Care Provider Kd Campos Seen Specialist in Last 12 Months Yes Specialist Seen Orthopedist Primary Language British Spooling Machine Operator Required No Height 177.8 cm Weight 90.718 kg Body Mass Index (BMI) 28.7 Hearing Ability Normal Visual Assist Glasses Dentition Type Teeth, Natural Present,Dental Implants Other Aids No Hx Anesthesia Reactions No: PT DOES NOT WANT A SPINAL Hx Family Anesthesia Reaction No Hx Malignant Hyperthermia No Hx Blood Transfusions No Anesthesia Review Requested No Power Technician No alcohol intake current alcohol intake frequency holidays/special occasions only Smoking Status Never smoker Substance Use Type does not use Pain Present Pain Reported Musculoskeletal Symptoms Abnormal Gait,Difficulty Walking,Joint Pain History of Falling (Recent or History of No ) Patient is completely paralyzed or No completely immobile Mental Status Oriented to own ability Comment Walking stick Is patient on oxygen? No Does patient have MACKEY/SOB No Hx Sleep Apnea No Currently Taking a Beta Maria Elena Yes: Atenolol Hx Chest Pain No Hx SOB No Hx Syncope or Dizziness No Anti-Coagulant Therapy No Has a Therapy Tech No Cardiac Testing No Hx Pacemaker/ICD No Pacemaker Rep Required? No Cardiac Clearance Received Not Applicable Diet Type At Home Regular Dysphagia No Gastrointestinal Symptoms Diarrhea Chronic UTI No Urinary Catheter Present No Hx Urinary Self Catheterization No Diabetes Yes HgbA1C 5.7 Date 02/16/23 Presence of External or Internal Medical Yes: Bilat eye IOLs Devices Received a COVID vaccine? Yes Received all doses? Yes Marital Status Lives With spouse Current Living Arrangements House Number of Floors (Floors) Two Floors Support System Spouse Does the Patient Have Assistance After Yes Surgery Patient Discharge Plan Description Return Home Comment Pt advised overnight length of stay per surgeon Feels Safe in Current Environment Yes Been Physically Hurt or Threatened By a No Person in Current Environment Do you have thoughts of harming yourself None or others? Are you currently considering suicide? No Do you have a plan to hurt yourself or No Plan others? Do You Have Any Spiritual Beliefs That No May Affect Your HC Choices? Do You Have Any Cultural Practices That No May Affect Your HC Choices? Who Can We Speak to About Patient's Care Family, friends Identifying Code for Release of Patient Declines to issue Information Health Care Proxy/Next of Kin Merle () Health Care Proxy Emergency Contact Name Merle () Emergency Contact Advance Directives? Yes Advance Directives on File No Requested Patient Bring Advanced Yes Directives DOS Power of Tile Finisher Yes Power of Tile Finisher Name Merle (zeynep) Power of Tile Finisher PAC Instructions Durable medical equipment, Medications to take/avoid, Nasal antibiotic,No ETOH/ petroleum product on skin DOS, NPO,Post-op transportation,Pre -surgical wash,Sensory aids, Sturdy shoes/comfortable clothes,Do not bring valuables and remove jewelry
[2023-04-18] MEDS: OXYCODONE IR 10 MG TABLET PO (12:21)
--- NOTE | 2023-04-18 12:48 | PC.NURSE ---
Day shift: Left unit via WC w/ this television writer at approx 1240. Paperwork signed and all questions answered. Has all personal belongings. Spouse in room for d/c teachings. CMS intact. PPP. No new MD scripts. On there way home to [facility]. THey have a priority boarding pass.
== END 2023-04-18 12:40 | disposition home or self-care (01) ==
LOC: OR 08:38 → AC 08:38
PROVIDERS: PCP Specialist; Referring Provider Orthopaedic Surgery; Visit Provider Orthopaedic Surgery
PROC: 0SRC0JZ Replacement of Right Knee Joint with Synthetic Substitute, Open Approach (ICD-10-PCS; CPT 27447; principal; 2023-04-17 10:45)
DX: M17.0 Bilateral primary osteoarthritis of knee (principal); M11.869 Other specified crystal arthropathies, unspecified knee; E11.9 Type 2 diabetes mellitus without complications; I10 Essential (primary) hypertension; Z85.3 Personal history of malignant neoplasm of breast; Z79.84 Long term (current) use of oral hypoglycemic drugs
CPT/HCPCS: 27447; 36415; 73560; 82962; 85014; 85018; 97116; 97162; 97165; 97530; 97535; C1776; C9290; J0171; J1100; J1170; J2405; J2704; J3010